=== PATIENT | male | born 1955 | race Two or more races ===

== ENCOUNTER 2018-05-16 07:59 | Inpatient (IN) | payer MEDICAID ==
[~2018-05-16] VITALS: Ht 167.6 cm; Wt 60.4 kg
[2018-05-16 09:10] LABS: MEAN CORPUSCULAR HEMOGLOBIN 31.9 pg (27.5-34.5); MEAN CORPUSCULAR HGB CONC 34.2 g/dL (33.2-36.2); MEAN CORPUSCULAR VOLUME 93.2 fL (81-97); MEAN PLATELET VOLUME 7.3 fL (7.4-10.4); PLATELET COUNT 422 x10^3/uL (130-400); RED BLOOD COUNT 4.44 x10^6/uL (4.38-5.82); RED CELL DISTRIBUTION WIDTH 12.9 % (9.4-14.8)
[2018-05-16] MEDS ORDERED: ACETAMINOPHEN 325 MG TABLET ONE (09:18)
[2018-05-16 09:22] LABS: ALBUMIN 3.6 g/dL (3.4-5.0); ANION GAP 9 mmol/L (5-15); CALCIUM 9.1 mg/dL (8.5-10.1); CHLORIDE 106 mmol/L (98-107)
[2018-05-16] MEDS ORDERED: ALBUTEROL SULFATE 2.5 MG/3 ML ONE (09:24)
[2018-05-16] MEDS ORDERED: ALBUTEROL SULFATE 2.5 MG/3 ML NPPB ONE (09:30)
[2018-05-16] MEDS ORDERED: ACETAMINOPHEN 325 MG TABLET PO ONE (09:30)
[2018-05-16 09:43] LABS: MD YES
[2018-05-16 09:45] LABS: BAND#(MANUAL) 1.39 x10^3/uL; BANDS%(MANUAL) 7 % (0-7); LYMPHS% (MANUAL) 5 % (22-44); MONOS% (MANUAL) 2 % (2-9); SEG#(MANUAL) 17.11 x10^3/uL (1.8-6.8); SEGS% (MANUAL) 86 % (42-75)
[2018-05-16 09:46] LABS: <PLATELET ESTIMATE> ADEQUATE; <PLT MORPHOLOGY> NORMAL PLT MORPH; <RBC MORPHOLOGY> NORMAL; TOXIC GRAN 1+
[2018-05-16] MEDS ORDERED: SODIUM CHLORIDE 0.9% 1,000ML IVBOLUS ONE ×2 (10:00→14:30)
[2018-05-16] MEDS ORDERED: CEFTRIAXONE PMX 1GM/50ML 50 ML ONE (10:05)
[2018-05-16] MEDS ORDERED: ONDANSETRON 2MG/ML, 2ML IVPush PRN (10:30)
[2018-05-16] MEDS ORDERED: ONDANSETRON ODT 4 MG PO PRN (10:30)
[2018-05-16] MEDS ORDERED: hydrALAzine 20 MG/ML, 1ML IVPush PRN (10:30)
[2018-05-16] MEDS ORDERED: KETOROLAC 30 MG/1 ML IM PRN (10:30)
[2018-05-16] MEDS ORDERED: CEFTRIAXONE 1,000 MG in SODIUM CHLORIDE 0.9% 50 ML IVPB ONE (10:30)
[2018-05-16] MEDS ORDERED: AZITHROMYCIN 500 MG in SODIUM CHLORIDE 0.9% 250 ML IVPB ONE (10:30)
[2018-05-16] MEDS ORDERED: DOCUSATE 100 MG CAPSULE PO PRN (10:30)
[2018-05-16] MEDS ORDERED: LABETALOL 5MG/ML, 20ML IVPush PRN (10:30)
[2018-05-16 11:00] VITALS: BP 125/63
[2018-05-16] MEDS ORDERED: ALBUTEROL/IPRATROPIUM 2.5MG/0.5MG, 3 ML NPPB PRN (12:30)
[2018-05-16 12:39] VITALS: BP 126/58
[2018-05-16] MEDS ORDERED: AZITHROMYCIN 500 MG in SODIUM CHLORIDE 0.9% 250 ML IV SCH (13:00)
[2018-05-16] MEDS: HEPARIN 5,000 UNITS/ML, 1ML SQ SCH ×2 (13:28→21:11)
[2018-05-16] MEDS: GUAIFENESIN/DM 200-20MG, 10ML UDC PO PRN ×2 (13:56→21:11)
[2018-05-16] MEDS: ACETAMINOPHEN 325 MG TABLET PO PRN ×2 (13:57→21:11)
[2018-05-16] MEDS ORDERED: VANCOMYCIN PER PHARMACY MC PRN (14:00)
[2018-05-16 14:23] LABS: MICROSCOPIC NOT IND
[2018-05-16 14:26] LABS: CULTURE INDICATED? NO
[2018-05-16] MEDS ORDERED: VANCOMYCIN 1,200 MG in SODIUM CHLORIDE 0.9% 250 ML IV SCH (14:30)
[2018-05-16] MEDS ORDERED: PHARMACOKINETIC MONITORING MC PRN (14:30)
[2018-05-16] MEDS ORDERED: PHARMACOKINETIC CONSULTATION MC ONE (14:30)
[2018-05-16] MEDS ORDERED: DOCU250C9 PO (14:52)
[2018-05-16] MEDS ORDERED: MOME13HF INH (14:52)
[2018-05-16] MEDS ORDERED: LOSA50TA7 PO (14:52)
[2018-05-16] MEDS ORDERED: CALC-666 PO (14:52)
[2018-05-16] MEDS ORDERED: FLUT1DIS3 INH (14:52)
[2018-05-16] MEDS ORDERED: ALBU6.7H INH (14:52)
[2018-05-16] MEDS ORDERED: MONT10TA9 PO (14:52)
[2018-05-16] MEDS: ALBUTEROL/IPRATROPIUM 2.5MG/0.5MG, 3 ML NPPB SCH ×2 (14:56→19:29)
[2018-05-16] MEDS ORDERED: ALBUTEROL/IPRATROPIUM 2.5MG/0.5MG, 3 ML NPPB SCH (15:00)
[2018-05-16] MEDS: LEVOFLOXACIN/PMX 750MG/150ML 150 ML IV SCH (15:03)
[2018-05-16 15:55] LABS: RAPID INFLUENZA A Negative (Negative); RAPID INFLUENZA B Negative (Negative)
[2018-05-16 20:00] VITALS: BP 95/56
[2018-05-17 02:14] VITALS: BP 111/66
[2018-05-17] MEDS: SODIUM CHLORIDE INHALATION 7%, 4 ML NPPB SCH ×2 (05:00→07:28)
[2018-05-17] MEDS: HEPARIN 5,000 UNITS/ML, 1ML SQ SCH ×3 (05:21→20:31)
[2018-05-17 05:41] LABS: ANION GAP 10 mmol/L (5-15); CALCIUM 8.5 mg/dL (8.5-10.1); CHLORIDE 113 mmol/L (98-107)
[2018-05-17 05:42] LABS: CREATININE 0.81 mg/dL (0.7-1.3)
[2018-05-17 05:49] LABS: BASOPHILS # (AUTO) 0.05 x10^3/uL (0-0.1); BASOPHILS % (AUTO) 0 % (0-1); EOSINOPHILS # (AUTO) 0.05 x10^3/uL (0-0.4); EOSINOPHILS % (AUTO) 0 % (1-7); LYMPHOCYTES # (AUTO) 2.35 x10^3/uL (1-3.4); LYMPHOCYTES % (AUTO) 15 % (22-44); MD NO; MEAN CORPUSCULAR HEMOGLOBIN 32.5 pg (27.5-34.5); MEAN CORPUSCULAR HGB CONC 34.1 g/dL (33.2-36.2); MEAN CORPUSCULAR VOLUME 95.4 fL (81-97); MEAN PLATELET VOLUME 7.8 fL (7.4-10.4); MONOCYTES # (AUTO) 0.95 x10^3/uL (0.2-0.8); MONOCYTES % (AUTO) 6 % (2-9); NEUTROPHILS # (AUTO) 12.68 x10^3/uL (1.8-6.8); NEUTROPHILS % (AUTO) 79 % (42-75); PLATELET COUNT 312 x10^3/uL (130-400); RED BLOOD COUNT 3.87 x10^6/uL (4.38-5.82); RED CELL DISTRIBUTION WIDTH 13.2 % (9.4-14.8)
[2018-05-17] MEDS: ALBUTEROL/IPRATROPIUM 2.5MG/0.5MG, 3 ML NPPB SCH ×4 (07:00→20:05)
[2018-05-17 08:45] VITALS: BP 118/65
[2018-05-17] MEDS: LOSARTAN 50MG TABLET PO SCH (08:57)
[2018-05-17] MEDS ORDERED: MULT-6 PO (09:59)
[2018-05-17] MEDS ORDERED: IPRA12.9 INH (09:59)
[2018-05-17] MEDS ORDERED: CALC1TAB78 PO (09:59)
[2018-05-17] MEDS ORDERED: CEFTRIAXONE PMX 1GM/50ML 50 ML IV SCH (10:00)
[2018-05-17 12:03] VITALS: BP 113/64
[2018-05-17] MEDS: VANCOMYCIN 1,200 MG in SODIUM CHLORIDE 0.9% 250 ML IV SCH (15:06)
[2018-05-17] MEDS: LEVOFLOXACIN/PMX 750MG/150ML 150 ML IV SCH (15:07)
[2018-05-17 20:29] VITALS: BP 113/61
[2018-05-18 02:23] VITALS: BP 115/78
[2018-05-18] MEDS: VANCOMYCIN 1,200 MG in SODIUM CHLORIDE 0.9% 250 ML IV SCH (02:24)
[2018-05-18 04:58] LABS: BASOPHILS # (AUTO) 0.03 x10^3/uL (0-0.1); BASOPHILS % (AUTO) 0 % (0-1); EOSINOPHILS # (AUTO) 0.09 x10^3/uL (0-0.4); EOSINOPHILS % (AUTO) 1 % (1-7); LYMPHOCYTES # (AUTO) 1.03 x10^3/uL (1-3.4); LYMPHOCYTES % (AUTO) 13 % (22-44); MD NO; MEAN CORPUSCULAR HEMOGLOBIN 32.9 pg (27.5-34.5); MEAN CORPUSCULAR HGB CONC 34.4 g/dL (33.2-36.2); MEAN CORPUSCULAR VOLUME 95.5 fL (81-97); MEAN PLATELET VOLUME 7.7 fL (7.4-10.4); MONOCYTES # (AUTO) 0.59 x10^3/uL (0.2-0.8); MONOCYTES % (AUTO) 8 % (2-9); NEUTROPHILS # (AUTO) 6.05 x10^3/uL (1.8-6.8); NEUTROPHILS % (AUTO) 78 % (42-75); PLATELET COUNT 303 x10^3/uL (130-400); RED BLOOD COUNT 3.64 x10^6/uL (4.38-5.82); RED CELL DISTRIBUTION WIDTH 13.4 % (9.4-14.8)
[2018-05-18 05:06] LABS: ANION GAP 7 mmol/L (5-15); CALCIUM 8.5 mg/dL (8.5-10.1); CHLORIDE 113 mmol/L (98-107); CREATININE 0.76 mg/dL (0.7-1.3)
[2018-05-18] MEDS: HEPARIN 5,000 UNITS/ML, 1ML SQ SCH ×3 (05:34→20:15)
[2018-05-18] MEDS: ALBUTEROL/IPRATROPIUM 2.5MG/0.5MG, 3 ML NPPB SCH ×4 (07:20→19:53)
[2018-05-18 08:00] VITALS: BP 100/60
[2018-05-18] MEDS: LOSARTAN 50MG TABLET PO SCH (08:31)
[2018-05-18 12:46] VITALS: BP 100/67
[2018-05-18] MEDS: LEVOFLOXACIN/PMX 750MG/150ML 150 ML IV SCH (14:28)
[2018-05-18] MEDS: ACETAMINOPHEN 325 MG TABLET PO PRN (16:06)
[2018-05-18 20:13] VITALS: BP 107/62
[2018-05-19 02:00] VITALS: BP 113/67
[2018-05-19] MEDS: HEPARIN 5,000 UNITS/ML, 1ML SQ SCH ×3 (04:37→21:00)
[2018-05-19] MEDS ORDERED: SODIUM CHLORIDE INHALATION 7%, 4 ML NPPB SCH (05:00)
[2018-05-19] MEDS: ALBUTEROL/IPRATROPIUM 2.5MG/0.5MG, 3 ML NPPB SCH ×4 (07:50→20:22)
[2018-05-19] MEDS ORDERED: ALBUTEROL SULFATE 2.5 MG/3 ML ONE (08:03)
[2018-05-19] MEDS: LOSARTAN 50MG TABLET PO SCH (08:42)
[2018-05-19 08:43] VITALS: BP 127/78
[2018-05-19 12:48] VITALS: BP 111/66
[2018-05-19] MEDS: LEVOFLOXACIN/PMX 750MG/150ML 150 ML IV SCH (14:13)
[2018-05-19 21:07] VITALS: BP 106/68
[2018-05-19] MEDS: METOPROLOL SUCCINATE 25 MG TAB.ER.24H PO SCH (21:11)
[2018-05-20] MEDS ORDERED: OMNIPAQUE 350 MG/ML, 75ML BOTTLE ONE (00:02)
[2018-05-20 04:23] VITALS: BP 105/76
[2018-05-20] MEDS: HEPARIN 5,000 UNITS/ML, 1ML SQ SCH ×3 (05:00→21:00)
[2018-05-20 05:55] LABS: BASOPHILS # (AUTO) 0.02 x10^3/uL (0-0.1); BASOPHILS % (AUTO) 0 % (0-1); EOSINOPHILS # (AUTO) 0.12 x10^3/uL (0-0.4); EOSINOPHILS % (AUTO) 2 % (1-7); LYMPHOCYTES # (AUTO) 1.19 x10^3/uL (1-3.4); LYMPHOCYTES % (AUTO) 24 % (22-44); MD NO; MEAN CORPUSCULAR HEMOGLOBIN 32.2 pg (27.5-34.5); MEAN CORPUSCULAR VOLUME 94.7 fL (81-97); MEAN PLATELET VOLUME 7.6 fL (7.4-10.4); MONOCYTES # (AUTO) 0.51 x10^3/uL (0.2-0.8); MONOCYTES % (AUTO) 10 % (2-9); NEUTROPHILS # (AUTO) 3.22 x10^3/uL (1.8-6.8); NEUTROPHILS % (AUTO) 64 % (42-75); PLATELET COUNT 459 x10^3/uL (130-400); RED BLOOD COUNT 4.16 x10^6/uL (4.38-5.82); RED CELL DISTRIBUTION WIDTH 12.9 % (9.4-14.8)
[2018-05-20 05:57] LABS: ANION GAP 10 mmol/L (5-15); CALCIUM 9.1 mg/dL (8.5-10.1); CHLORIDE 107 mmol/L (98-107)
[2018-05-20 05:58] LABS: CREATININE 1.11 mg/dL (0.7-1.3)
[2018-05-20] MEDS: ALBUTEROL/IPRATROPIUM 2.5MG/0.5MG, 3 ML NPPB SCH ×4 (07:25→20:20)
[2018-05-20 08:00] VITALS: BP 120/82
[2018-05-20] MEDS: LOSARTAN 25MG TABLET PO SCH (08:51)
[2018-05-20 14:59] VITALS: BP 114/67
[2018-05-20] MEDS: LEVOFLOXACIN/PMX 750MG/150ML 150 ML IV SCH (15:05)
[2018-05-20 19:17] VITALS: BP 108/76
[2018-05-20 20:45] LABS: CLOSTRIDIUM DIFFICILE ANTIGEN NEGATIVE; CLOSTRIDIUM DIFFICILE TOXIN NEGATIVE (Negative)
[2018-05-20 21:33] VITALS: BP 103/67
[2018-05-20] MEDS: METOPROLOL SUCCINATE 25 MG TAB.ER.24H PO SCH (21:35)
[2018-05-21 02:00] VITALS: BP 115/69
[2018-05-21] MEDS: HEPARIN 5,000 UNITS/ML, 1ML SQ SCH (05:00)
[2018-05-21 07:00] VITALS: BP 125/79
[2018-05-21] MEDS: ALBUTEROL/IPRATROPIUM 2.5MG/0.5MG, 3 ML NPPB SCH (08:00)
[2018-05-21] MEDS ORDERED: METOPROLOL TARTRATE 25 MG TABLET PO SCH (09:00)
[2018-05-21] MEDS: LOSARTAN 25MG TABLET PO SCH (09:11)
[2018-05-21] MEDS ORDERED: METO25TA35 PO (11:01)
[2018-05-21] MEDS ORDERED: LOSA25TA2 PO (11:01)
[2018-05-21] MEDS ORDERED: LEVO750T26 PO (11:01)
== END 2018-05-21 14:52 | disposition home or self-care (01) | DRG 871 ==
LOC: ED 09:51 → EDIP 10:10 → 4EST 11:13 → 4WST 16:21
PROVIDERS: ADMIT Internal Medicine; ATTEND Internal Medicine
DX: A41.9 Sepsis, unspecified organism (principal); J15.9 Unspecified bacterial pneumonia; J44.0 Chronic obstructive pulmonary disease with (acute) lower respiratory infection; B19.20 Unspecified viral hepatitis C without hepatic coma; I10 Essential (primary) hypertension; Z59.0 Homelessness; Z82.49 Family history of ischemic heart disease and other diseases of the circulatory system; Z86.14 Personal history of Methicillin resistant Staphylococcus aureus infection; Z87.891 Personal history of nicotine dependence; Z88.0 Allergy status to penicillin
CPT/HCPCS: 36415; 84145; 87400; 87806; 99285; J7613; J7620; 71046; 71260; 80048; 81003; 82040; 83605; 85025; 86480; 86635; 87015; 87040; 87070; 87081; 87116; 87205; 87206; 87324; 87880; 93005; 93306; 94640; 96361; 96365; G0378; J0456; J0696; J1644; J1956; J3370; Q9967; G0475; J7030; J7050